=== PATIENT | male | born 1990 | race Caucasian/White ===

== ENCOUNTER 2021-09-17 09:54 | Emergency (ER) | payer OTHER ==
[2021-09-17 10:23] VITALS: RESP 18; TEMP 98.9
[2021-09-17] MEDS ORDERED: HYDROmorphone 0.5 MG/0.5 ML SYRINGE IVP STA (11:03)
[2021-09-17] MEDS ORDERED: ONDANSETRON 4 MG/2 ML VIAL IVP STA (11:03)
[2021-09-17] MEDS ORDERED: SODIUM CHLORIDE 0.9% 1,000 ML IV STA (11:03)
[2021-09-17] MEDS ORDERED: FAMOTIDINE 20 MG/2 ML VIAL IV STA (11:04)
[2021-09-17 11:22] LABS: Basophils # (A) 0.1 k/uL (0-0.2); Basophils % (A) 1 %; Eosinophils # (A) 0.1 k/uL (0-0.7); Eosinophils % (A) 1 %; HCT 47.3 % (39.0-53.0); HGB 16.1 gm/dL (13.0-17.5); Lymphocytes # (A) 2.2 k/uL (1.0-4.8); Lymphocytes % (A) 27 %; MCH 30.7 pg (25.0-35.0); MCV 90.3 fL (80.0-100.0); Mean Platelet Volume 8.2; Monocytes # (A) 0.7 k/uL (0-1.0); Monocytes % (A) 9 %; Neutrophils % (A) 61 %; Platelet Count 244 k/uL (150-450); RBC 5.24 m/uL (4.30-5.90); RDW 12.7 % (11.5-15.5); WBC 8.1 k/uL (3.8-10.6)
[2021-09-17 11:37] LABS: ALT 28 U/L (4-49); AST 46 U/L (17-59); African American GFR (CKD) >90 (>60 ml/min/1.73 sqM); Albumin 5.1 g/dL (3.5-5.0); Alkaline Phosphatase 70 U/L (38-126); Amylase 84 U/L (30-110); Anion Gap 12 mmol/L; Blood Urea Nitrogen 17 mg/dL (9-20); Calcium 10.2 mg/dL (8.4-10.2); Carbon Dioxide 26 mmol/L (22-30); Chloride 102 mmol/L (98-107); Glucose 100 mg/dL (74-99); Lipase 121 U/L (23-300); Non-African American GFR(CKD) >90 (>60 ml/min/1.73 sqM); Sodium 140 mmol/L (137-145); Total Bilirubin 1.3 mg/dL (0.2-1.3); Total Protein 8.5 g/dL (6.3-8.2)
--- NOTE | 2021-09-17 12:09 | US ---
EXAMINATION TYPE: US gallbladder DATE OF EXAM: 09/17/2021 COMPARISON: NONE CLINICAL HISTORY: pain. Nausea/vomiting, MUQ pain x 3 days EXAM MEASUREMENTS: Liver Length: 15.9 cm Gallbladder Wall: 0.1 cm CBD: 0.2 cm Right Kidney: 12.2 x 5.4 x 4.2 cm Pancreas: Obscured by bowel gas Liver: Partially Obscured by overlying bowel gas, No masses seen Gallbladder: No stones seen Evidence for sonographic Harp's sign: No CBD: wnl Right Kidney: No hydronephrosis or masses seen Suboptimal evaluation of pancreas on initial images. Visualized liver heterogeneously hyperechoic. No suspicious masses or ductal dilatation. Gallbladder seen without shadowing mobile gallstones. No rig ht-sided hydronephrosis. IMPRESSION: No gallstones or ultrasound evidence for acute cholecystitis. Suboptimal evaluation of pa ncreas otherwise unremarkable study.
--- NOTE | 2021-09-17 13:40 | ED ---
General Adult HPI - General Chief complaint: Nausea/Vomiting/Diarrhea Stated complaint: nausea, vomiting Time Seen by Provider: 09/17/21 10:30 Source: patient Mode of arrival: ambulatory Limitations: no limitations - History of Present Illness Initial comments: 31-year-old male presents to the emergency room for a chief complaint of nausea vomiting. Patient reports he has had some nausea vomiting for the past 3 days. States he has had some epigastric pain as well. States it is mild in nature. Patient denies any lower abdominal pain. Does admit to chills but denies fevers. He denies any diarrhea. Patient has no other complaints at this time i ncluding shortness of breath, chest pain, headache, or visual changes. - Related Data Previous Rx's Medication Instructions Recorded Famotidine [Pepcid] 20 mg PO BID #30 tablet 09/17/21 Ondansetron [Zofran ODT] 4 mg PO Q8HR PRN #15 tab 09/17/21 Allergies Allergy/AdvReac Type Severity Reaction Status Date / Time No Known Allergies Allergy Verified 09/17/21 11:19 Review of Systems ROS Statement: Those systems with pertinent positive or pertinent negative responses have been documented in the HPI. ROS Other: All systems not noted in ROS Statement are negative. Past Medical History Past Medical History: No Reported History History of Any Multi-Drug Resistant Organisms: None Reported Past Surgical History: No Surgical Hx Reported Past Psychological History: No Psychological Hx Reported Smoking Status: Current every day smoker Past Alcohol Use History: None Reported Past Drug Use History: Marijuana General Exam Limitations: no limitations General appearance: alert, in no apparent distress Head exam: Present: atraumatic Eye exam: Present: normal appearance, PERRL, EOMI. Absent: scleral icterus ENT exam: Present: normal exam, mucous membranes moist Neck exam: Present: normal inspection, full ROM. Absent: tenderness Respiratory exam: Present: normal lung sounds bilaterally. Absent: respiratory distress, wheezes Cardiovascular Exam: Present: regular rate, normal rhythm, normal heart sounds GI/Abdominal exam: Present: soft, tenderness (Animal epigastric tenderness. No lower abdominal tenderness. No umbilical pain.), normal bowel sounds. Absent: distended, guarding, rebound, rigid Course Vital Signs 09/17/21 10:17 Temperature 98.9 F Pulse Rate 89 Respiratory 18 Rate Blood Pressure 100/69 O2 Sat by Pulse 97 Oximetry Medical Decision Making - Medical Decision Making vitals are stable. Patient is afebrile. White blood cell count is normal at 8.1. CMP is unremarkable. Ultrasound shows no gallstones. Patient was given pain medication and had improvement in pain. Tolerating oral intake. Covid swab was never obtained by nursing staff. Therefore I will call him with results as he does not list to wait at this point. She will be discharged home to follow up with primary care. I will also give him GI referral as her on Pepcid. He will return here for any worsening symptoms. - Lab Data Result diagrams: 09/17/21 11:13 09/17/21 11:13 Lab Results 09/17/21 09/17/21 Range/Units 11:13 11:13 WBC 8.1 (3.8-10.6) k/uL RBC 5.24 (4.30-5.90) m/uL Hgb 16.1 (13.0-17.5) gm/dL Hct 47.3 (39.0-53.0) % MCV 90.3 (80.0-100.0) fL MCH 30.7 (25.0-35.0) pg MCHC 34.0 (31.0-37.0) g/dL RDW 12.7 (11.5-15.5) % Plt Count 244 (150-450) k/uL MPV 8.2 Neutrophils % 61 % Lymphocytes % 27 % Monocytes % 9 % Eosinophils % 1 % Basophils % 1 % Neutrophils # 5.0 (1.3-7.7) k/uL Lymphocytes # 2.2 (1.0-4.8) k/uL Monocytes # 0.7 (0-1.0) k/uL Eosinophils # 0.1 (0-0.7) k/uL Basophils # 0.1 (0-0.2) k/uL Sodium 140 (137-145) mmol/L Potassium 4.0 (3.5-5.1) mmol/L Chloride 102 (98-107) mmol/L Carbon Dioxide 26 (22-30) mmol/L Anion Gap 12 mmol/L BUN 17 (9-20) mg/dL Creatinine 1.09 (0.66-1.25) mg/dL Est GFR (CKD-EPI)AfAm >90 (>60 ml/min/1.73 sqM) Est GFR (CKD-EPI)NonAf >90 (>60 ml/min/1.73 sqM) Glucose 100 H (74-99) mg/dL Calcium 10.2 (8.4-10.2) mg/dL Total Bilirubin 1.3 (0.2-1.3) mg/dL AST 46 (17-59) U/L ALT 28 (4-49) U/L Alkaline Phosphatase 70 (38-126) U/L Total Protein 8.5 H (6.3-8.2) g/dL Albumin 5.1 H (3.5-5.0) g/dL Amylase 84 (30-110) U/L Lipase 121 (23-300) U/L Disposition Clinical Impression: Epigastric pain, Nausea & vomiting Disposition: HOME SELF-CARE Condition: Good Instructions (If sedation given, give patient instructions): Abdominal Pain (ED) Additional Instructions: Please take medications as directed. Follow-up with your doctor. Follow up with GI as well for abdominal pain. Return to the emergency room for any worsening symptoms. Prescriptions: Famotidine [Pepcid] 20 mg PO BID #30 tablet Ondansetron [Zofran ODT] 4 mg PO Q8HR PRN #15 tab PRN Reason: Nausea Is patient prescribed a controlled substance at d/c from ED?: No Referrals: Rosalia Oconnor MD [STAFF PHYSICIAN] - 1-2 days Kimberli Edward MD [STAFF PHYSICIAN] - 1-2 days Time of Disposition: 13:39
[2021-09-17 13:53] VITALS: BP 113/69; PULSE 74
== END 2021-09-17 13:53 | disposition home or self-care (01) ==
LOC: EC 09:54
DX: R10.13 Epigastric pain (principal); R11.2 Nausea with vomiting, unspecified; F12.90 Cannabis use, unspecified, uncomplicated; F17.200 Nicotine dependence, unspecified, uncomplicated
CPT/HCPCS: 36415; 80053; 82150; 83690; 85025; 87635; 76705; 99284; 96374; 96375 ×2; 96361; J2405; J1170

== ENCOUNTER 2021-10-24 18:21 | Observation (INO) | payer OTHER ==
[2021-10-24] MEDS ORDERED: ASPIRIN 81 MG PO STA (19:16)
--- NOTE | 2021-10-24 19:25 | ED ---
General Adult HPI - General Chief complaint: Back Pain/Injury Stated complaint: Back pain Time Seen by Provider: 10/24/21 19:04 Source: patient Mode of arrival: ambulatory Limitations: no limitations - History of Present Illness Initial comments: This is a previously healthy 31-year-old male who has no significant past medical history. Patient is a cigarette smoker. Patient states for the past 3 days she has been getting chest pains and upper back pain. Patient states when he is at work he is getting pain. He states it doesn't seem to be related to twisting or bending. He states after he works for quite some time he starts getting the discomfort and then has to rest and it goes away. He also has sensation of shortness of breath. Patient states she feels the pain in his chest as well as his upper back. No significant family history of cardiac disease. Patient does have history of cigarette smoking. Positive family history of diabetes in his father. No previous history of sudden cardiac . Essentially no current symptomology. Patient states he does have a strange feeling in his upper back. - Related Data Previous Rx's Medication Instructions Recorded Famotidine [Pepcid] 20 mg PO BID #30 tablet 09/17/21 Ondansetron [Zofran ODT] 4 mg PO Q8HR PRN #15 tab 09/17/21 Allergies Allergy/AdvReac Type Severity Reaction Status Date / Time No Known Allergies Allergy Verified 10/24/21 18:44 Review of Systems ROS Statement: Those systems with pertinent positive or pertinent negative responses have been documented in the HPI. ROS Other: All systems not noted in ROS Statement are negative. Past Medical History Past Medical History: No Reported History History of Any Multi-Drug Resistant Organisms: None Reported Past Surgical History: No Surgical Hx Reported Past Psychological History: No Psychological Hx Reported Smoking Status: Current every day smoker Past Alcohol Use History: None Reported Past Drug Use History: Marijuana - Past Family History Father Family Medical History: Diabetes Mellitus General Exam - General Exam Comments Initial Comments: 31-year-old male in no significant distress. Vital signs noted. Does not appear to be ill or toxic. Limitations: no limitations General appearance: alert, in no apparent distress Head exam: Present: atraumatic, normocephalic, normal inspection Eye exam: Present: normal appearance, PERRL, EOMI. Absent: scleral icterus, conjunctival injection, periorbital swelling ENT exam: Present: normal exam, mucous membranes moist Neck exam: Present: normal inspection. Absent: tenderness, meningismus, lymphadenopathy Respiratory exam: Present: normal lung sounds bilaterally. Absent: respiratory distress, wheezes, rales, rhonchi, stridor Cardiovascular Exam: Present: regular rate, normal rhythm, normal heart sounds. Absent: systolic murmur, diastolic murmur, rubs, gallop, clicks GI/Abdominal exam: Present: soft, normal bowel sounds. Absent: distended, tenderness, guarding, rebound, rigid Extremities exam: Present: normal inspection, full ROM, normal capillary refill. Absent: tenderness, pedal edema, joint swelling, calf tenderness Back exam: Present: normal inspection, full ROM, paraspinal tenderness, other (Patient does have some reproducible tenderness to the upper back. However full range of motion without reproducible symptomology.). Absent: tenderness, CVA tenderness (R), CVA tenderness (L), muscle spasm, vertebral tenderness Neurological exam: Present: alert, oriented X3, CN II-XII intact Psychiatric exam: Present: normal affect, normal mood Skin exam: Present: warm, dry, intact, normal color. Absent: rash Course Vital Signs 10/24/21 10/24/21 10/24/21 18:42 20:06 20:56 Temperature 98.8 F Pulse Rate 64 68 75 Respiratory 20 18 18 Rate Blood Pressure 118/77 121/71 135/71 O2 Sat by Pulse 99 97 97 Oximetry - Reevaluation(s) Reevaluation #1: 10/24/21 21:10 Medical record is reviewed Symptoms are improved here in the emergency department Patient is informed of results and questions answered Patient in no distress Medical Decision Making - Medical Decision Making Patient in no distress. Case discussed in detail with Dr. Srivastava. We will advise observation as the patient's pain is related to exertion and seems to be consistent with possible unstable angina. Patient is a cigarette smoker. No known family history of cardiac disease. No known personal history. EKG done at 1859 and read by the ED attending physician reveals sinus bradycardia with a rate of 54, normal axis, patient does have evidence of nonspecific ST-T wave changes. In fact, evidence of S1 Q3 T3.Patient will be admitted for observation. Case discussed in detail with the hospitalist physician, Dr. Nova Patient will be admitted for atypical chest pain. Aspirin 324 mg was given. Supervising physician was Dr. Srivastava The case was discussed in detail with ED attending physician. Presentation, findings, treatment plan discussed in detail. - Lab Data Result diagrams: 10/24/21 20:14 10/24/21 20:14 Lab Results 10/24/21 10/24/21 10/24/21 Range/Units 20:14 20:14 20:14 WBC 4.4 (3.8-10.6) k/uL RBC 4.67 (4.30-5.90) m/uL Hgb 13.9 (13.0-17.5) gm/dL Hct 42.7 (39.0-53.0) % MCV 91.4 (80.0-100.0) fL MCH 29.9 (25.0-35.0) pg MCHC 32.7 (31.0-37.0) g/dL RDW 12.9 (11.5-15.5) % Plt Count 195 (150-450) k/uL MPV 7.8 Neutrophils % 55 % Lymphocytes % 36 % Monocytes % 5 % Eosinophils % 1 % Basophils % 1 % Neutrophils # 2.4 (1.3-7.7) k/uL Lymphocytes # 1.6 (1.0-4.8) k/uL Monocytes # 0.2 (0-1.0) k/uL Eosinophils # 0.0 (0-0.7) k/uL Basophils # 0.0 (0-0.2) k/uL D-Dimer (<0.60) mg/L FEU Sodium 137 (137-145) mmol/L Potassium 4.3 (3.5-5.1) mmol/L Chloride 105 (98-107) mmol/L Carbon Dioxide 24 (22-30) mmol/L Anion Gap 8 mmol/L BUN 12 (9-20) mg/dL Creatinine 0.73 (0.66-1.25) mg/dL Est GFR (CKD-EPI)AfAm >90 (>60 ml/min/1.73 sqM) Est GFR (CKD-EPI)NonAf >90 (>60 ml/min/1.73 sqM) Glucose 100 H (74-99) mg/dL Calcium 9.0 (8.4-10.2) mg/dL Magnesium 1.8 (1.6-2.3) mg/dL Total Bilirubin 0.4 (0.2-1.3) mg/dL AST 20 (17-59) U/L ALT 19 (4-49) U/L Alkaline Phosphatase 65 (38-126) U/L Creatine Kinase 102 (55-170) U/L Troponin I <0.012 (0.000-0.034) ng/mL Total Protein 7.2 (6.3-8.2) g/dL Albumin 4.5 (3.5-5.0) g/dL Coronavirus (PCR) (Not Detectd) 10/24/21 10/24/21 Range/Units 20:14 20:14 WBC (3.8-10.6) k/uL RBC (4.30-5.90) m/uL Hgb (13.0-17.5) gm/dL Hct (39.0-53.0) % MCV (80.0-100.0) fL MCH (25.0-35.0) pg MCHC (31.0-37.0) g/dL RDW (11.5-15.5) % Plt Count (150-450) k/uL MPV Neutrophils % % Lymphocytes % % Monocytes % % Eosinophils % % Basophils % % Neutrophils # (1.3-7.7) k/uL Lymphocytes # (1.0-4.8) k/uL Monocytes # (0-1.0) k/uL Eosinophils # (0-0.7) k/uL Basophils # (0-0.2) k/uL D-Dimer 0.29 (<0.60) mg/L FEU Sodium (137-145) mmol/L Potassium (3.5-5.1) mmol/L Chloride (98-107) mmol/L Carbon Dioxide (22-30) mmol/L Anion Gap mmol/L BUN (9-20) mg/dL Creatinine (0.66-1.25) mg/dL Est GFR (CKD-EPI)AfAm (>60 ml/min/1.73 sqM) Est GFR (CKD-EPI)NonAf (>60 ml/min/1.73 sqM) Glucose (74-99) mg/dL Calcium (8.4-10.2) mg/dL Magnesium (1.6-2.3) mg/dL Total Bilirubin (0.2-1.3) mg/dL AST (17-59) U/L ALT (4-49) U/L Alkaline Phosphatase (38-126) U/L Creatine Kinase (55-170) U/L Troponin I (0.000-0.034) ng/mL Total Protein (6.3-8.2) g/dL Albumin (3.5-5.0) g/dL Coronavirus (PCR) Not Detected (Not Detectd) Disposition Clinical Impression: Atypical chest pain Disposition: ADMITTED IP TO THIS HOSP Referrals: None,Stated [Primary Care Provider] - 1-2 days Decision to Admit Reason: Admit from EC Decision Time: 21:35
--- NOTE | 2021-10-24 20:14 | XR ---
EXAMINATION: XR chest 1V portable DATE AND TIME: 10/24/2021 7:26 PM CLINICAL INDICATION: PHH; chest pain TECHNIQUE: Portable PA chest COMPARISON: None FINDINGS: The lungs are clear. The pleural spaces are negative. The cardiac silhouette is not enlarged. The remainder of the mediastinal silhouette is unremarkable. The skeletal structures and soft tissues are negative for acute findings. IMPRESSION: NO ACUTE PROCESS.
[2021-10-24 20:26] LABS: Basophils % (A) 1 %; Eosinophils % (A) 1 %; HCT 42.7 % (39.0-53.0); HGB 13.9 gm/dL (13.0-17.5); Lymphocytes # (A) 1.6 k/uL (1.0-4.8); Lymphocytes % (A) 36 %; MCH 29.9 pg (25.0-35.0); MCHC 32.7 g/dL (31.0-37.0); MCV 91.4 fL (80.0-100.0); Mean Platelet Volume 7.8; Monocytes # (A) 0.2 k/uL (0-1.0); Monocytes % (A) 5 %; Neutrophils # (A) 2.4 k/uL (1.3-7.7); Neutrophils % (A) 55 %; Platelet Count 195 k/uL (150-450); RBC 4.67 m/uL (4.30-5.90); RDW 12.9 % (11.5-15.5); WBC 4.4 k/uL (3.8-10.6)
[2021-10-24 20:43] LABS: ALT 19 U/L (4-49); AST 20 U/L (17-59); African American GFR (CKD) >90 (>60 ml/min/1.73 sqM); Albumin 4.5 g/dL (3.5-5.0); Alkaline Phosphatase 65 U/L (38-126); Anion Gap 8 mmol/L; Blood Urea Nitrogen 12 mg/dL (9-20); Carbon Dioxide 24 mmol/L (22-30); Chloride 105 mmol/L (98-107); Creatine Kinase 102 U/L (55-170); Glucose 100 mg/dL (74-99); Magnesium 1.8 mg/dL (1.6-2.3); Non-African American GFR(CKD) >90 (>60 ml/min/1.73 sqM); Potassium 4.3 mmol/L (3.5-5.1); Sodium 137 mmol/L (137-145); Total Bilirubin 0.4 mg/dL (0.2-1.3); Total Protein 7.2 g/dL (6.3-8.2)
[2021-10-24] MEDS ORDERED: NALOXONE 0.4 MG/ML 1 ML VIAL IV PRN (21:38)
[2021-10-24] MEDS ORDERED: ONDANSETRON 4 MG/2 ML VIAL IVP PRN (21:38)
[2021-10-24] MEDS ORDERED: ACETAMINOPHEN TAB 325 MG TAB PO PRN (21:38)
[2021-10-24] MEDS ORDERED: MORPHINE SULFATE 4 MG/ML SYRINGE IV PRN (21:38)
[2021-10-24] MEDS ORDERED: MORPHINE SULFATE 4 MG/ML SYRINGE IV STA (21:41)
[2021-10-24] MEDS ORDERED: SODIUM CHLORIDE 0.9% 1,000 ML IV SCH (21:45)
[2021-10-24] MEDS ORDERED: ENOXAPARIN 40 MG/0.4 ML SYRINGE SQ SCH (21:45)
--- NOTE | 2021-10-25 02:00 | P.HPIM ---
History of Present Illness H&P Date: 10/24/21 The patient is a 31-year-old male with no known PMH who presented to the emergency room with complaints of chest discomfort. The patient reports that over the past 3-4 days, he has had intermittent upper back and substernal chest discomfort, pleuritic in nature, worsened with movements, nonradiating, with associated shortness of breath, occurring particularly with physical activity involving heavy lifting. The patient denied any prior history of such pain. He reports smoking significant amounts of marijuana daily. Denied any family history of heart disease but states that his father is a diabetic. Denied experiencing nausea, dizziness, palpitations. Denied fever, chills, cough, diarrhea. Chest x-ray was unremarkable with EKG showing sinus bradycardia at 54 bpm. Laboratory evaluation revealed a troponin of less than 0.012 with D-dimer 0.29. Review of systems: Pertinent positives and negatives as discussed in HPI, a complete review of systems was performed and all other systems are negative. Physical examination: General: non toxic, no distress, appears at stated age, overweight Derm: no unusual rashes/lesions no unusual ecchymoses, warm, dry Head: atraumatic, normocephalic, symmetric Eyes: EOMI, no lid lag, anicteric sclera, pupils equal round reactive to light ENT: Nose and ears atraumatic, no thrush, no pharyngeal erythema Neck: No thyromegaly, no cervical lymphadenopathy, trachea midline, supple Mouth: no lip lesion, mucus membranes moist Cardiovascular: S1S2 reg, no murmur, positive posterior tibial pulse bilateral, no edema, capillary refill less than 2 seconds, sternal chest wall tenderness on palpation Lungs: CTA bilateral, no rhonchi, no rales , no accessory muscle use Abdominal: soft, nontender to palpation, no guarding, no appreciable organomegaly, normal bowel sounds Ext: no gross muscle atrophy, muscle strength 5 out of 5 in all 4 extremities g rossly, no contractures, Neuro: CN II-XI grossly intact, light touch intact all 4 extremities, finger to nose within normal limits, Psych: Alert, oriented, appropriate affect Assessment/plan Atypical chest pain -Continue with aspirin -Cardiac monitoring -Cardiology consult -Trend troponin Marijuana abuse -Advised on importance of cessation DVT prophylaxis -Lovenox The patient is admitted with an anticipated less than 2 midnight stay for evaluation of chest pain CODE STATUS: Full Code Discussed with: Patient Anticipated discharge date: in am Anticipated discharge place: Home Past Medical History Past Medical History: No Reported History History of Any Multi-Drug Resistant Organisms: None Reported Past Surgical History: No Surgical Hx Reported Past Psychological History: No Psychological Hx Reported Smoking Status: Current every day smoker Past Alcohol Use History: None Reported Past Drug Use History: Marijuana - Past Family History Father Family Medical History: Diabetes Mellitus Medications and Allergies Home Medications Medication Instructions Recorded Confirmed Type No Known Home Medications 10/24/21 10/24/21 History Allergies Allergy/AdvReac Type Severity Reaction Status Date / Time No Known Allergies Allergy Verified 10/24/21 21:52 Physical Exam Vitals: Vital Signs Temp Pulse Pulse Resp BP BP Pulse Ox 10/24/21 23:29 98.2 F 47 L 16 122/77 98 10/24/21 22:57 67 18 136/71 99 10/24/21 22:02 69 16 137/68 98 10/24/21 20:56 75 18 135/71 97 10/24/21 20:06 68 18 121/71 97 10/24/21 18:42 98.8 F 64 20 118/77 99 Intake and Output 10/24/21 10/24/21 10/25/21 14:59 22:59 06:59 Other: Weight 88.451 kg Results CBC & Chem 7: 10/24/21 20:14 10/24/21 20:14 Labs: Abnormal Lab Results - Last 24 Hours (Table) 10/24/21 Range/Units 20:14 Glucose 100 H (74-99) mg/dL Thrombosis Risk Factor Assmnt - Choose All That Apply Any of the Below Risk Factors Present?: Yes Each Factor Represents 1 point: Obesity (BMI >25) Other Risk Factors: No Other congenital or acquired thrombophilia - If yes, enter type in comment: No Thrombosis Risk Factor Assessment Total Risk Factor Score: 1 Thrombosis Risk Factor Assessment Level: Low Risk
[2021-10-25 07:52] VITALS: TEMP 97.7
--- NOTE | 2021-10-25 11:44 | P.CRDCN ---
History of Present Illness History of present illness: HISTORY OF PRESENTING ILLNESS This is a pleasant 31-year-old male past medical history significant for chronic nicotine dependence. He does not follow with a [employer]. We have been asked to see in consultation for chest pain. Patient presents emergency department with complaints of bilateral chest pain, bilateral upper back/shoulder blade pain. His chest pain is aggravated by deep breathing. His upper back pain is aggravated by palpation to his shoulder blades bilaterally. His chest pain is non-radiating. Non-exertional. He is unsure what brought his pain on. He denies any injury. His pain is constant. He does not have any associated palpitations, shortness of breath, lower extremity edema, fatigue, weakness, lightheadedness, syncope or near syncope. He denies cough, fever, or chills. He denies diaphoresis, nausea, vomiting. He continues to smoke. He does not have any hi story of CAD, DE, Stroke or diabetes or hypertension DIAGNOSTICS EKG reveals sinus bradycardia, heart rate 54, T wave inversion in lead III, early repolarization in all leads. Repeat EKG with similar findings. No acute ischemia Telemetry tracings indicate sinus mechanism, heart rate 4860s Chest xray no acute cardiopulmonary process Laboratory reviewed, CBC unremarkable, troponin negative 3, d-dimer negative, sodium 137, potassium 4.3, BUN 12, serum 2.7, magnesium 1.8, Covid negative Current home medications include none REVIEW OF SYSTEMS At the time of my exam: CONSTITUTIONAL: Denies fever or chills. CARDIOVASCULAR: Reports bilateral chest pain with deep breathing. Denies shortness of breath, orthopnea, PND or palpitations. RESPIRATORY: Denies cough. GASTROINTESTINAL: Denies abdominal pain, diarrhea, constipation, nausea or vomiting. MUSCULOSKELETAL: Back pain with palpation to bilateral shoulder blades NEUROLOGIC: Denies numbness, tingling, headache or weakness. ENDOCRINE: Denies fatigue, weight change, polydipsia or polyurina. GENITOURINARY: Denies burning, hematuria or urgency with micturation. HEMATOLOGIC: Denies history of anemia or bleeding. PHYSICAL EXAMINATION Blood pressure 90/59, heart rate 51, afebrile, saturations greater than 92% on room air CONSTITUTIONAL: No apparent distress. HEENT: Head is normocephalic. Pupils are equal, round. Sclerae anicteric. Mucous membranes of the mouth are moist. No JVD. No carotid bruit. CHEST EXAMINATION: Lungs are clear to auscultation. There is chest wall tenderness is noted with deep breathing. There is back pain noted with palpation HEART EXAMINATION: Regular rate and rhythm. S1, S2 heard. No murmurs, gallops or rub. ABDOMEN: Soft, nontender. Positive bowel sounds. EXTREMITIES: 2+ peripheral pulses, no lower extremity edema and no calf tenderness. SKIN: warm, dry NEUROLOGIC EXAMINATION: Patient is awake, alert and oriented x3. ASSESSMENT Chest pain, appears musculoskeletal in nature Back pain Chronic nicotine dependence PLAN An acute coronary event has been ruled out with no EKG evidence of ischemia and negative cardiac enzymes. Obtain 2D echocardiogram and doppler study ordered, Left ventricular systolic function reviewed at bedside by Dr. Lowe with normal LVEF. Smoking cessation discussed and highly recommended. From a cardiology perspective, patient's pain does not appear to be cardiac in etiology, acute coronary syndrome has been ruled out. Patient is stable to be discharged home. Thank you kindly for this consultation. Nurse Practitioner note has been reviewed, I agree with a documented findings and plan of care. Patient was seen and examined. Past Medical History Past Medical History: No Reported History History of Any Multi-Drug Resistant Organisms: None Reported Past Surgical History: No Surgical Hx Reported Past Psychological History: No Psychological Hx Reported Smoking Status: Current every day smoker Past Alcohol Use History: None Reported Past Drug Use History: Marijuana - Past Family History Father Family Medical History: Diabetes Mellitus Medications and Allergies Home Medications Medication Instructions Recorded Confirmed Type No Known Home Medications 10/24/21 10/24/21 History Allergies Allergy/AdvReac Type Severity Reaction Status Date / Time No Known Allergies Allergy Verified 10/24/21 21:52 Physical Exam Vitals: Vital Signs Temp Pulse Pulse Resp BP BP Pulse Ox 10/25/21 02:15 97.6 F 53 L 18 113/66 98 10/25/21 01:20 16 10/24/21 23:29 98.2 F 47 L 16 122/77 98 10/24/21 22:57 67 18 136/71 99 10/24/21 22:02 69 16 137/68 98 10/24/21 20:56 75 18 135/71 97 10/24/21 20:06 68 18 121/71 97 10/24/21 18:42 98.8 F 64 20 118/77 99 Intake and Output 10/24/21 10/25/21 10/25/21 22:59 06:59 14:59 Other: # Voids 2 Weight 88.451 kg Results 10/24/21 20:14 10/24/21 20:14 Cardiac Enzymes 10/24/21 10/24/21 10/24/21 Range/Units 20:14 20:14 23:45 AST 20 (17-59) U/L Troponin I <0.012 <0.012 (0.000-0.034) ng/mL 10/25/21 Range/Units 01:59 AST (17-59) U/L Troponin I <0.012 (0.000-0.034) ng/mL CBC 10/24/21 Range/Units 20:14 WBC 4.4 (3.8-10.6) k/uL RBC 4.67 (4.30-5.90) m/uL Hgb 13.9 (13.0-17.5) gm/dL Hct 42.7 (39.0-53.0) % Plt Count 195 (150-450) k/uL Comprehensive Metabolic Panel 10/24/21 Range/Units 20:14 Sodium 137 (137-145) mmol/L Potassium 4.3 (3.5-5.1) mmol/L Chloride 105 (98-107) mmol/L Carbon Dioxide 24 (22-30) mmol/L BUN 12 (9-20) mg/dL Creatinine 0.73 (0.66-1.25) mg/dL Glucose 100 H (74-99) mg/dL Calcium 9.0 (8.4-10.2) mg/dL AST 20 (17-59) U/L ALT 19 (4-49) U/L Alkaline Phosphatase 65 (38-126) U/L Total Protein 7.2 (6.3-8.2) g/dL Albumin 4.5 (3.5-5.0) g/dL Current Medications Generic Name Dose Route Start Last Admin Trade Name Freq PRN Reason Stop Dose Admin Acetaminophen 650 mg 10/24/21 21:38 Acetaminophen Tab 325 Mg Tab PO Q6HR PRN Mild Pain or Fever > 100.5 Enoxaparin Sodium 40 mg 10/24/21 21:45 10/24/21 21:58 Enoxaparin 40 Mg/0.4 Ml Syringe SQ 40 mg HS JOCELYN Administration Sodium Chloride 1,000 mls @ 75 mls/hr 10/24/21 21:45 10/24/21 21:50 Saline 0.9% IV 75 mls/hr .[id number] JOCELYN Administration Morphine Sulfate 4 mg 10/24/21 21:38 Morphine Sulfate 4 Mg/Ml Syringe IV Q4HR PRN Severe Pain Naloxone HCl 0.2 mg 10/24/21 21:38 Naloxone 0.4 Mg/Ml 1 Ml Vial IV Q2M PRN Opioid Reversal Ondansetron HCl 4 mg 10/24/21 21:38 10/24/21 21:58 Ondansetron 4 Mg/2 Ml Vial IVP 4 mg Q8HR PRN Administration Nausea And Vomiting Intake and Output 10/24/21 10/25/21 10/25/21 22:59 06:59 14:59 Other: # Voids 2 Weight 88.451 kg 10/24/21 20:14 10/24/21 20:14
--- NOTE | 2021-10-25 12:00 | ECHOF ---
Referral Reason:LV function, eval pericardial effusion MEASUREMENTS -------- HEIGHT: 172.7 cm WEIGHT: 88.5 kg BP: IVSd: 0.9 cm (0.6 - 1.1) LVIDd: 4.4 cm (3.9 - 5.3) LVPWd: 1.2 cm (0.6 - 1.1) EDV(Teich): 85 ml IVSs: 1.4 cm LVIDs: 3.3 cm LVPWs: 1.6 cm %IVS Thck: 60 % ESV(Teich): 44 ml EF(Teich): 49 % %FS: 24 % SV(Teich): 42 ml LA Diam: 2.9 cm (2.7 - 3.8) RVIDd: 3.3 cm (< 3.3) Ao Diam: 3.4 cm (2.0 - 3.7) LA Diam: 4.2 cm (2.7 - 3.8) AV Cusp: 2.3 cm (1.5 - 2.6) EPSS: 1.0 cm MV E Dennis: 0.84 m/s MV DecT: 161 ms MV Dec Limestone: 5.2 m/s MV A Dennis: 0.48 m/s MV E/A Ratio: 1.74 MV PHT: 47 ms TR Vmax: 2.02 m/s TR maxP.29 mmHg RAP: 5.00 mmHg RVSP: 21.29 mmHg MV EF SLOPE: 138.26 mm/s (70 - 150) MV EXCURSION: 18.74 mm (> 18.000) FINDINGS -------- Sinus rhythm. This was a technically good study. LV size, wall thickness and systolic function are normal, with an EF greater than 55%. The left rhett tricular size is normal. The right ventricle is normal in size. The left atrial size is normal. The right atrial size is normal. The aortic valve is trileaflet, and appears structurally normal. No aortic stenosis or regurgitation. Mild mitral regurgitation is present. Mild tricuspid regurgitation present. Right ventricular systolic pressure is normal at < 35 mmHg. There is no pulmonic regurgitation present. There is no pericardial effusion. CONCLUSIONS -------- 1. LV size, wall thickness and systolic function are normal, with an EF greater than 55%. 2. The left ventricular size is normal. 3. The right ventricle is normal in size. 4. The left atrial size is normal. 5. The right atrial size is normal. 6. The aortic valve is trileaflet, and appears structurally normal. No aortic stenosis or regurgitati on. 7. Mild mitral regurgitation is present. 8. Mild tricuspid regurgitation present. 9. There is no pericardial effusion. ANTIQUE COLLECTOR: Josefina Roberts RDCS
--- NOTE | 2021-10-25 13:32 | P.DS ---
Providers Date of admission: 10/24/21 21:26 Expected date of discharge: 10/25/21 Attending physician: Puma Nova MD Consults: 10/25/21 02:00 Consult Physician Urgent Consulting Provider: Aflredo Johnston Consult Reason/Comments: chest pain Do you want consulting provider notified?: Yes Primary care physician: Stated None Hospital Course: Discharge Diagnosis: Atypical chest pain likely musculoskeletal Marijuana abuse Hospital Course: Patient is a 31-year-old male with no past medical history who presented to the emergency room with complaints of chest discomfort. Patient states that he has pleuritic chest pain with deep breaths. Patient also states that he's been having presyncopal episodes. Patient was admitted for cardiology evaluation. Patient's d-dimer was 0.29 which rules out pulmonary embolism. His troponins were negative 3 which rules out ACS. Patient had an echocardiogram that showed a normal LV function and no pericardial effusion so pericarditis was also ruled out. I believe the patient's pain is most likely musculoskeletal. Will advise patient to take ibuprofen [id number] as needed. Patient told to follow-up with cardiology for further workup of his presyncopal episodes. At the time of discharge patient states then he was still having some pleuritic chest pain however improving since admission. He was given aspirin on admission. General examination - Alert and Oriented 3 in NAD Heart - + S1S2 no murmurs Lungs - Clear to auscultation Abdomen soft NT ND +ve BS Extremities - No edema [employer] - Moving all 4 extremities spontaneously Psych - Calm and cooperative A total of [20] minutes of time were spent preparing this complex discharge summary . Plan - Discharge Summary Discharge Rx Participant: No New Discharge Prescriptions: New Ibuprofen 400 mg PO Q8H PRN #21 tab PRN Reason: Pain Discharge Medication List Ibuprofen 400 mg PO Q8H PRN #21 tab 10/25/21 [Rx] Follow up Appointment(s)/Referral(s): None,Stated [Primary Care Provider] - 1-2 days Nacho Lowe MD [STAFF PHYSICIAN] - 1 Week Discharge Disposition: HOME SELF-CARE
[2021-10-25 14:35] VITALS: BP 105/66; PULSE 54; RESP 17
== END 2021-10-25 15:00 | disposition home or self-care (01) ==
LOC: EC 18:21 → 6NMEDSUR 21:26
PROVIDERS: ADMIT Internal Medicine; ATTEND Internal Medicine
DX: R07.89 Other chest pain (principal); F12.10 Cannabis abuse, uncomplicated; F17.210 Nicotine dependence, cigarettes, uncomplicated; R07.2 Precordial pain; Z20.822 Contact with and (suspected) exposure to COVID-19; R06.02 Shortness of breath; R07.1 Chest pain on breathing; M54.6 Pain in thoracic spine; R07.81 Pleurodynia; R00.1 Bradycardia, unspecified; I08.1 Rheumatic disorders of both mitral and tricuspid valves; E66.9 Obesity, unspecified; Z68.29 Body mass index [BMI] 29.0-29.9, adult; Z71.6 Tobacco abuse counseling; Z83.3 Family history of diabetes mellitus
CPT/HCPCS: 99285; 96361; 96372; 96374; 96375; 36415; 93005; 93306; 85379; 80053; 82550; 83735; 84484 ×2; 85025; 87635; 71045; G0378 ×2; J2270; J2405; J1650